=== PATIENT | female | born 1990 | race Caucasian/White ===

== ENCOUNTER 2020-10-06 08:54 | Emergency (ER) | payer OTHER ==
[~2020-10-06] VITALS: Ht 175.3 cm; Wt 79.4 kg
[2020-10-06 09:13] VITALS: BP 115/76
--- NOTE | 2020-10-06 09:13 | NUR ---
ED Nurse Note: patient from [facility] and walked in due to upper back pain x 3 weeks with no recent injury. Also today, patient had 2 syncope episodes. Patient states that she felt dizzy before fainting. No reports of head injury. AAO x4, ambulates with steady gait.
--- NOTE | 2020-10-06 09:31 | NUR ---
ED Nurse Note: Collected blood specimen then sent.
--- NOTE | 2020-10-06 09:36 | NUR ---
ED Nurse Note: Asha at the bed side for xray.
[2020-10-06 09:42] LABS: EOSINOPHILS % (AUTO) 0.9 % (0.0-3.0); HEMATOCRIT 44.3 % (37.0-47.0); HEMOGLOBIN 14.7 G/DL (12.0-16.0); LYMPHOCYTES % (AUTO) 35.8 % (20.0-45.0); MEAN CORPUSCULAR VOLUME 101 FL (80-99); MONOCYTES % (AUTO) 4.5 % (1.0-10.0); NEUTROPHILS % (AUTO) 57.9 % (45.0-75.0); PLATELET COUNT 191 K/UL (150-450); RED BLOOD COUNT 4.39 M/UL (4.20-5.40); RED CELL DISTRIBUTION WIDTH 11.3 % (11.6-14.8); WHITE BLOOD COUNT 6.2 K/UL (4.8-10.8)
[2020-10-06 09:43] VITALS: BP_SYST 111; BP_SYST 112; BP_SYST 115; BP_DIAS 68; BP_DIAS 70
[2020-10-06 09:49] LABS: CALCIUM 8.7 MG/DL (8.5-10.1); CREATININE 1.2 MG/DL (0.55-1.30)
--- NOTE | 2020-10-06 09:50 | Emergency Room Report ---
History of Present Illness General Chief Complaint: Syncope Source: Patient Present Illness HPI Disclaimer: Please note that this report is being documented using DRAGON technology. This can lead to erroneous entry secondary to incorrect interpretation by the dictating instrument. HPI: 30-year-old otherwise healthy female presents for evaluation of syncopal episode. She awoke in her usual state of health getting up to use the bathroom. She felt lightheaded, diaphoretic and sat down. Her boyfriend was sitting next to her and caught her as she syncopized. There was no head injury or other injury reported. She then awoke immediately and then had another brief syncopal episode lasting several seconds. No seizure-like activity was reported. She denies any prodromal chest pains, palpitations, shortness of breath. She denies any recent nausea, vomiting, diarrhea. Reports decreased water drinking over the past few days but denies fever, chills or other changes in her health. She has been complaining of some left-sided paraspinal and scapular pain for approximately 3 weeks. Exacerbated by movement of left upper extremity of the neck. She awoke 1 day with and believes she slept wrong. Has been taking ibuprofen with some improvement. Does not smoke cigarettes or take any medications. No prior history of surgery. She does take OCPs. No recent travel. Denies lower extremity pain or swelling. PMH: Denied PSH: Denied Allergies: Denied Social Hx: Moderate alcohol use, denies tobacco, denies drugs Allergies: Coded Allergies: No Known Allergies (Unverified , 10/06/20) COVID-19 Screening Contact w/high risk pt: No Experienced COVID-19 symptoms?: No COVID-19 Testing performed LOGGING SUPERINTENDENT: No Patient History Last Menstrual Period: 08/19/2020 Now: No Nursing Documentation-PMH Past Medical History: No Stated History Review of Systems All Other Systems: negative except mentioned in HPI Physical Exam Vital Signs Date Time Temp Pulse Resp B/P (MAP) Pulse Ox O2 Delivery O2 Flow Rate FiO2 10/06/20 09:03 97.9 76 20 107/75 (86) 99 Room Air General: Awake and alert, no acute distress HEENT: NC/AT. EOMI. PERRLA. Cardiovascular: RRR. S1 and S2 normal. No murmur appreciated Resp: Normal work of breathing. No cough, wheezing or crackles appreciated Abdomen: Abdomen is soft, nondistended. Nontender Skin: Intact. No abrasions, laceration or rash over the exposed skin MSK: Normal tone and bulk. Moving all extremities. No obvious deformity. Neuro: Awake and alert. Mentating appropriately. Back: No tenderness, step-off or deformity in the midline in the cervical or thoracic spine. Moderate left-sided paraspinal sponginess as well as periscapular is tenderness on the left side. No tenderness over the trapezius. Medical Decision Making Diagnostic Impression: Primary Impression: Back strain Additional Impression: Syncope ER Course Is a 30-year-old female presenting for evaluation of syncopal episode. Differential includes was not limited to dehydration, orthostatic hypotension, arrhythmia, ACS, electrolyte abnormality, PE, dissection, pneumonia, musculosk eletal strain, muscle spasm among others. EKG is nonischemic with normal intervals. D-dimer returned slightly elevated. Remainder of labs including troponin returned within normal limits. A CTA was obtained which did not find any evidence of PE, dissection or other intrathoracic abnormalities aside from nodular changes in the breast that will be followed up on an outpatient basis. Urinalysis showed some bacteria but no inflammatory markers or white cells. The patient denies symptoms of UTI at this time. Discussed whether or not she should received antibiotics however she declined stating she would wait for culture results before starting antibiotics. She like to return home at this time. We will treat for back strain/spasm with Robaxin, NSAIDs, lidocaine patches. I believe patient is appropriate for outpatient follow-up. Instructed to return with new or worsening symptoms. She understands and agrees with this treatment plan. Laboratory Tests Test 10/06/20 09:20 White Blood Count 6.2 K/UL (4.8-10.8) Red Blood Count 4.39 M/UL (4.20-5.40) Hemoglobin 14.7 G/DL (12.0-16.0) Hematocrit 44.3 % (37.0-47.0) Mean Corpuscular Volume 101 FL (80-99) H Mean Corpuscular Hemoglobin 33.4 PG (27.0-31.0) H Mean Corpuscular Hemoglobin Concent 33.1 G/DL (32.0-36.0) Red Cell Distribution Width 11.3 % (11.6-14.8) L Platelet Count 191 K/UL (150-450) Mean Platelet Volume 8.1 FL (6.5-10.1) Neutrophils (%) (Auto) 57.9 % (45.0-75.0) Lymphocytes (%) (Auto) 35.8 % (20.0-45.0) Monocytes (%) (Auto) 4.5 % (1.0-10.0) Eosinophils (%) (Auto) 0.9 % (0.0-3.0) Basophils (%) (Auto) 1.0 % (0.0-2.0) D-Dimer 2.72 mg/L FEU (0.00-0.49) H Urine Color Pale yellow Urine Appearance Slightly cloudy Urine pH 7 (4.5-8.0) Urine Specific Doyle 1.010 (1.005-1.035) Urine Protein 3+ (NEGATIVE) H Urine Glucose (UA) Negative (NEGATIVE) Urine Ketones 1+ (NEGATIVE) H Urine Blood 1+ (NEGATIVE) H Urine Nitrite Negative (NEGATIVE) Urine Bilirubin Negative (NEGATIVE) Urine Urobilinogen Normal MG/DL (0.0-1.0) Urine Leukocyte Esterase 1+ (NEGATIVE) H Urine RBC 0-2 /HPF (0 - 2) Urine WBC 0-2 /HPF (0 - 2) Urine Squamous Epithelial Cells Occasional /LPF Urine Bacteria Moderate /HPF (NONE) H Urine Hyaline Casts 0-2 /LPF (NONE) H Urine Mucus Occasional /LPF Urine HCG, Qualitative Negative (NEGATIVE) Sodium Level 140 MMOL/L (136-145) Potassium Level 4.0 MMOL/L (3.5-5.1) Chloride Level 106 MMOL/L (98-107) Carbon Dioxide Level 27 MMOL/L (21-32) Anion Gap 8 mmol/L (5-15) Blood Urea Nitrogen 14 mg/dL (7-18) Creatinine 1.2 MG/DL (0.55-1.30) Estimated Glomerular Filtration Rate 52.8 mL/min (>60) Glucose Level 101 MG/DL (74-106) Calcium Level 8.7 MG/DL (8.5-10.1) Total Bilirubin 0.5 MG/DL (0.2-1.0) Aspartate Amino Transferase (AST) 17 U/L (15-37) Alanine Aminotransferase (ALT) 20 U/L (12-78) Alkaline Phosphatase 68 U/L (46-116) Troponin I 0.000 ng/mL (0.000-0.056) Total Protein 7.5 G/DL (6.4-8.2) Albumin 3.7 G/DL (3.4-5.0) Globulin 3.8 g/dL Albumin/Globulin Ratio 1.0 (1.0-2.7) Urine Opiates Screen Negative (NEGATIVE) Urine Barbiturates Screen Negative (NEGATIVE) Phencyclidine (PCP) Screen Negative (NEGATIVE) Urine Amphetamines Screen Negative (NEGATIVE) Urine Benzodiazepines Screen Negative (NEGATIVE) Urine Cocaine Screen Negative (NEGATIVE) Urine Marijuana (THC) Screen Negative (NEGATIVE) Urine Ethyl Alcohol Pending EKG Diagnostic Results Troponin ordered: Yes When was troponin ordered?: Oct 06, 2020 EKG Time: 09:26 Rate: normal Rhythm: NSR ST Segments: no acute changes Other Impression Sinus rhythm, normal axis,, QTC 458 ms, no ST segment changes Rhythm Strip Diag. Results Rhythm Strip Time: 09:26 EP Interpretation: yes Rate: 63 Rhythm: NSR, no PVC's, no ectopy Chest X-Ray Diagnostic Results Chest X-Ray Diagnostic Results : Chest X-Ray Ordered: Yes # of Views/Limited/Complete: 1 View Indication: Other - Syncope Interpretation: no consolidation, no effusion, no pneumothorax, no acute cardiopulmonary disease Impression: No acute disease Electronically Signed by: Electronically signed by Dr. Rubens Doan MD CT/MRI/US Diagnostic Results CT/MRI/US Diagnostic Results : Impression IMPRESSION: * No pulmonary embolism. * No thoracic aortic aneurysm or dissection. * No focal airspace consolidation, pleural effusion or pneumothorax. * Slight asymmetric nodularity suggested in the left breast. Correlation with breast exam recommended. The CT scanner at [facility] is accredited by the [employer] and the scans are performed using protocols designed to limit radiation exposure to as low as reasonably achievable to attain images of sufficient resolution adequate for diagnostic evaluation. Dictated By: Erick Dhillon M.D. Electronically Signed By:Erick Dhillon M.D. Signed Date/Time10/06/20 1145 CC: Rubens Doan MD Last Vital Signs Date Time Temp Pulse Resp B/P (MAP) Pulse Ox O2 Delivery O2 Flow Rate FiO2 10/06/20 09:43 61 115/70 66 111/68 74 112/70 10/06/20 09:13 97.9 17 100 Room Air Disposition: HOME, SELF-CARE Condition: Stable Scripts Lidocaine Patch* (Lidoderm Patch*) 1 Each Adh..patch 1 PATCH TOPIC DAILY, #30 PATCH Patch(es) may remain in place for up to 12 hours in any 24-hour period. Prov: Rubens Doan MD 10/06/20 Acetaminophen* (TYLENOL EXTRA STRENGTH*) 500 Mg Tablet 500 MG ORAL Q8H PRN for Prn Headache/Temp > 101, #30 TAB 0 Refills Prov: Rubens Doan MD 10/06/20 Ibuprofen* (MOTRIN*) 600 Mg Tablet 600 MG ORAL Q6H PRN for For Pain, #30 TAB 0 Refills Prov: Rubens Doan MD 10/06/20 Methocarbamol* (ROBAXIN-750*) 750 Mg Tablet 750 MG PO QID, #28 TAB 0 Refills Prov: Rubens Doan MD 10/06/20 Referrals: NOT CHOSEN IPA/,REFERRING (PCP) Rubens Doan MD Oct 06, 2020 09:50
[2020-10-06 09:54] LABS: ALBUMIN 3.7 G/DL (3.4-5.0); BILIRUBIN,TOTAL 0.5 MG/DL (0.2-1.0)
[2020-10-06 10:15] LABS: APPEARANCE,URINE SLIGHTLY CLOUDY; BILIRUBIN, URINE NEGATIVE (NEGATIVE); GLUCOSE, URINE (UA) NEGATIVE (NEGATIVE); KETONES,URINE 1+ (NEGATIVE); LEUKOCYTE ESTERASE ,URINE 1+ (NEGATIVE); NITRITE,URINE NEGATIVE (NEGATIVE); PH,URINE 7 (4.5-8.0); PROTEIN,URINE 3+ (NEGATIVE); UROBILINOGEN,URINE NORMAL MG/DL (0.0-1.0)
[2020-10-06 10:19] LABS: COLOR,URINE PALE YELLOW
[2020-10-06] MEDS ORDERED: Omnipaque 350 100ml vial INJ PRN (10:45)
[2020-10-06 11:00] VITALS: BP 122/74
--- NOTE | 2020-10-06 11:05 | NUR ---
ED Nurse Note: Patient taken to CT in stable condition.
--- NOTE | 2020-10-06 11:10 | NUR ---
ED Nurse Note: Dr Doan cancelled alcohol random urine lab.
--- NOTE | 2020-10-06 11:25 | NUR ---
ED Nurse Note: Patient came back from CT and stable.
--- NOTE | 2020-10-06 11:50 | Diagnostic Imaging Report ---
Indication: Chest pain, shortness of breath Technique: CT pulmonary angiogram performed utilizing automated exposure control with intravenous contrast. Axial, sagittal and coronal reconstructions were obtained. 3-D volumetric reconstructions were also performed. CT dose: Total DLP 262 mGycm; CTDI vol 57 mGy Comparison: None Findings: There is no pulmonary embolism. Main pulmonary artery is normal in caliber. Thoracic aorta is normal in caliber. No evidence of aortic aneurysm or dissection. Imaged portions of the bilateral common carotid and vertebral arteries are patent and normal in caliber. Imaged abdominal aorta is normal in caliber. Impression visceral vessels grossly unremarkable. There is no focal airspace consolidation. No pleural effusion or pneumothorax. No radiographic evidence to suggest pulmonary edema. Slight asymmetric nodularity suggested in the left breast. Heart size is within normal limits. No CT evidence of heart strain. No pericardial effusion. No pathologically enlarged hilar or mediastinal lymphadenopathy. Thyroid unremarkable. Imaged upper abdominal structures is unremarkable without evidence of acute abnormality. No acute osseous abnormality. IMPRESSION: * No pulmonary embolism. * No thoracic aortic aneurysm or dissection. * No focal airspace consolidation, pleural effusion or pneumothorax. * Slight asymmetric nodularity suggested in the left breast. Correlation with breast exam recommended. The CT scanner at [facility] is accredited by the [employer] and the scans are performed using protocols designed to limit radiation exposure to as low as reasonably achievable to attain images of sufficient resolution adequate for diagnostic evaluation.
--- NOTE | 2020-10-06 11:51 | Diagnostic Imaging Report ---
Indication: Chest pain Technique: XRAY Chest 1v Comparison: None Findings: Heart size and mediastinal contours are within normal limits for AP technique. There is no focal airspace consolidation, pneumothorax or pleural effusion. Osseous structures demonstrate no acute abnormality. Impression: No radiographic evidence of acute cardiopulmonary disease.
[2020-10-06] MEDS ORDERED: TYLENOL EXTRA500 MG ORAL ×3 (11:57→12:06)
[2020-10-06] MEDS ORDERED: LIDODERM700 M1 TOPIC ×3 (11:57→12:06)
[2020-10-06] MEDS ORDERED: IBUPROFEN600 M1 ORAL ×3 (11:57→12:06)
[2020-10-06] MEDS ORDERED: ROBAXIN-750750 MG PO ×3 (11:57→12:06)
[2020-10-06 12:11] VITALS: BP 130/75
--- NOTE | 2020-10-06 12:11 | NUR ---
ED Nurse Note: Pt cleared by ERMD for discharge. DC instructions was given and explained to pt and verbalized understanding of teachings. prescription sent electronically to the pharmacy of choice. All medical devices such as ID band and IV line removed. Pt is AAO x4, ambulatory and left with all personal belongings.
== END 2020-10-06 12:11 | disposition home or self-care (01) ==
LOC: EMR 09:21
DX: S39.012A Strain of muscle, fascia and tendon of lower back, initial encounter (principal); R55 Syncope and collapse; W19.XXXA Unspecified fall, initial encounter; Y92.009 Unspecified place in unspecified non-institutional (private) residence as the place of occurrence of the external cause; R07.9 Chest pain, unspecified; R06.02 Shortness of breath
CPT/HCPCS: 36415; 71045; 71275; 80053; 80307; 81003; 81025; 84484; 85025; 85379; 87086; 93005; 99284; Q9967